=== PATIENT | male | born 1985 | race Caucasian/White ===

== ENCOUNTER 2016-05-26 10:12 | Emergency (ER) | payer OTHER ==
[2016-05-26 10:22] VITALS: BP 128/66; PULSE 107; RESP 18; TEMP 98.7
--- NOTE | 2016-05-26 10:51 | ED ---
General Adult HPI - General Chief complaint: Upper Respiratory Infection Stated complaint: FLU LIKE SYMPTOMS Time Seen by Provider: 05/26/16 10:37 Source: patient, RN notes reviewed Mode of arrival: ambulatory Limitations: no limitations - History of Present Illness Initial comments: Patient's a 30-year-old male who presents emergency room today with a chief complaint of cough congestion over the last week. Patient does admit prior to that he had flulike symptoms for a week. He states that got better but over the last week she's had cough congestion positive sputum production as been yellow and green in color. Patient admits to bodyaches fevers chills. He admits that he's felt hot and cold at night. States low-grade fevers of 100F. Patient admits that children at home were diagnosed with pneumonia. Patient does admit that he went to a urgent care yesterday was placed on Biaxin. Patient denies any other complaints or symptoms. Patient denies any recent shortness of breath, chest pain, back pain, abdominal pain, nausea or vomiting, numbness or tingling, dysuria or hematuria, constipation or diarrhea, headaches or visual changes, or any other complaints. - Related Data Home Medications Medication Instructions Recorded Confirmed Acetaminophen Tab [Tylenol Tab] 500 mg PO Q6HR PRN 05/26/16 05/26/16 Clarithromycin [Biaxin] 500 mg PO Q12HR 05/26/16 05/26/16 Previous Rx's Medication Instructions Recorded Levofloxacin [Levaquin] 500 mg PO DAILY 7 Days 05/26/16 Allergies Allergy/AdvReac Type Severity Reaction Status Date / Time No Known Allergies Allergy Verified 05/26/16 11:06 Review of Systems ROS Statement: Those systems with pertinent positive or pertinent negative responses have been documented in the HPI. ROS Other: All systems not noted in ROS Statement are negative. Past Medical History Past Medical History: No Reported History History of Any Multi-Drug Resistant Organisms: None Reported Additional Past Surgical History / Comment(s): wisdom teeth Past Psychological History: No Psychological Hx Reported Smoking Status: Never smoker Past Alcohol Use History: Rare Past Drug Use History: None Reported General Exam - General Exam Comments Initial Comments: General: The patient is awake and alert, in no distress, and does not appear acutely ill. Eye: Pupils are equal, round and reactive to light, extra-ocular movements are intact. No nystagmus. There is normal conjunctiva bilaterally. No signs of icterus. Ears, nose, mouth and throat: There are moist mucous membranes and no oral lesions. Neck: The neck is supple, there is no tenderness or JVD. Cardiovascular: There is a regular rate and rhythm. No murmur, rub or gallop is appreciated. Respiratory: Lungs are clear to auscultation, respirations are non-labored, breath sounds are equal. No wheezes, stridor, rales, or rhonchi. Musculoskeletal: Normal ROM, no tenderness. Strength 5/5. Sensation intact. Pulses equal bilaterally 2+. Neurological: A&O x 3. CN II-XII intact, There are no obvious motor or sensory deficits. Coordination appears grossly intact. Speech is normal. Skin: Skin is warm and dry and no rashes or lesions are noted. Psychiatric: Cooperative, appropriate mood & affect, normal judgment. Limitations: no limitations Course Vital Signs 05/26/16 05/26/16 05/26/16 10:19 10:35 10:40 Temperature 98.7 F Pulse Rate 107 H Respiratory 18 18 Rate Blood Pressure 128/66 O2 Sat by Pulse 94 L 96 Oximetry Medical Decision Making - Medical Decision Making Patient's x-ray reviewed does show evidence for bilateral pneumonia. Patient will be treated with antibiotics. Patient's vitals are stable. Pulse ox currently 96 on room air. Patient will be placed on antibiotics of Levaquin. Advised close follow-up family doctor in the next 2 days return to emergency room if any symptoms increase or worsen or for any other concerns. Disposition Clinical Impression: Community acquired pneumonia Disposition: HOME SELF-CARE Condition: Good Instructions: Community Acquired Pneumonia (ED) Additional Instructions: Please use medication as discussed. Please follow-up with family doctor in the next 2 days of symptoms have not improved. Please return to emergency room if the symptoms increase or worsen or for any other concerns. Prescriptions: Levofloxacin [Levaquin] 500 mg PO DAILY 7 Days Time of Disposition: 11:34
--- NOTE | 2016-05-26 11:26 | XR ---
EXAMINATION TYPE: XR chest 2V DATE OF EXAM: 05/26/2016 11:07 AM COMPARISON: NONE HISTORY: Cough per order. Flulike symptoms per patient. TECHNIQUE: Frontal and lateral views of the chest are obtained. FINDINGS: There is patchy suspicious airspace opacity in the lingula confirmed on 2 views. I also murillo spect some posterior right medial basilar opacity. No pleural effusion or pneumothorax is present sudhir aterally. The cardiac silhouette size is within normal limits. The osseous structures are intact. IMPRESSION: Suspicious lingular and right medial basilar infiltrates.
== END 2016-05-26 11:46 | disposition home or self-care (01) ==
LOC: EC 10:12
DX: R09.89 Other specified symptoms and signs involving the circulatory and respiratory systems (principal); J18.9 Pneumonia, unspecified organism
CPT/HCPCS: 71020; 99283